=== PATIENT | female | born 1950 | race Caucasian/White ===

== ENCOUNTER 2025-03-14 12:29 | Outpatient (CLI) | payer OTHER | END 2025-03-14 14:54 | disposition home or self-care (01) | LOC: MRI 12:29 | PROVIDERS: ATTEND Neuromusculoskeletal Medicine & OMM | DX: I72.9 Aneurysm of unspecified site (principal); I65.1 Occlusion and stenosis of basilar artery; I65.09 Occlusion and stenosis of unspecified vertebral artery; I65.29 Occlusion and stenosis of unspecified carotid artery; Q28.2 Arteriovenous malformation of cerebral vessels; F09 Unspecified mental disorder due to known physiological condition; F03.90 Unspecified dementia, unspecified severity, without behavioral disturbance, psychotic disturbance, mood disturbance, and anxiety | CPT/HCPCS: 70544; 70551 ==